=== PATIENT | male | born 1975 | race Caucasian/White ===

== ENCOUNTER 2020-12-04 13:59 | Outpatient (CLI) | payer BC, SELFPAY ==
--- NOTE | ~2020-12-04 | XR_ITS ---
XR chest 2V DATE: 12/04/2020 14:24 INDICATION: Cough, chest pain, dyspnea. Covid. TECHNIQUE: PA and lateral chest COMPARISON: 01/29/2012 PA and lateral chest FINDINGS: Normal heart size. No hilar or mediastinal enlargement. No pulmonary infiltrate or consolid ation, pleural effusion or pulmonary vascular congestion or pneumothorax. IMPRESSION: Negative chest Reviewed, dictated and finalized at location B. IMPRESSION: Negative chest
[2020-12-04 14:38] LABS: Basophils Absolute Auto 0.03 K/mm3 (0.00-0.10); Basophils Percent Auto 0.5 % (0.0-1.0); Eosinophils Absolute Auto 0.12 K/mm3 (0.02-0.50); Eosinophils Percent Auto 2.2 % (1.0-6.0); Hematocrit 46.4 % (40.0-54.0); Hemoglobin 15.2 g/dL (14.0-18.0); Immature Granulocyte Absolute 0.05 K/mm3 (0.00-0.00); Immature Granulocyte Percent A 0.9 % (0.0-0.0); Lymphocytes Absolute Auto 1.96 K/mm3 (1.10-4.50); Lymphocytes Percent Auto 35.2 % (18.0-42.0); Mean Corpuscular HGB Conc 32.8 g/dL (32.0-36.0); Mean Corpuscular Hemoglobin 28.8 pg (27.0-31.0); Mean Corpuscular Volume 87.9 fL (78.0-102.0); Mean Platelet Volume 8.2 fl (8.7-11.0); Monocytes Percent Auto 14.4 % (2.0-11.0); Neutrophils Absolute Auto 2.6 K/mm3 (1.7-7.2); Neutrophils Percent Auto 46.8 % (50.0-70.0); Platelet Count Result 350 K/mm3 (150-420); Red Blood Count 5.28 M/mm3 (4.70-6.10); Red Cell Distribution Width 12.8 % (11.6-14.4); White Blood Count 5.6 K/mm3 (4.8-10.8)
[2020-12-04 14:57] LABS: Alanine Aminotransferase 35 U/L (16-63); Albumin Level 3.9 g/dL (3.4-5.0); Alkaline Phosphatase 77 U/L (46-116); Anion Gap 9 mmol/L (8-16); Aspartate Amino Transferase 19 U/L (15-37); Bilirubin,Total 0.4 mg/dL (0.00-1.00); Blood Urea Nitrogen 12 mg/dL (7-18); CRP 0.6 mg/dL (0.0-0.9); Calcium 8.8 mg/dL (8.5-10.1); Carbon Dioxide 28 mmol/L (21-32); Chloride 103 mmol/L (98-108); Creatine Kinase 265 U/L (39-308); Estimated Glomerular Filt Rate > 60; Glucose 101 mg/dL (70-99); Osmolality Calculated 289 mOsm/kg (285-295); Potassium 4.3 mmol/L (3.5-5.1); Sodium 140 mmol/L (136-145); Total Protein 7.5 g/dL (6.4-8.2)
[2020-12-04 14:59] LABS: Troponin I < 4.0 ng/L (0.00-60.4)
[2020-12-04 15:09] LABS: SARS-CoV-2 RNA PCR Positive (Negative)
[2020-12-05 10:58] LABS: Reference Lab Test Result NEGATIVE
== END 2020-12-04 14:00 | disposition home or self-care (01) ==
LOC: CHSLAB 14:02
PROVIDERS: PCP Internal Medicine; Visit Provider Internal Medicine
DX: U07.1 COVID-19 (principal); R05 Cough; R07.9 Chest pain, unspecified; R06.00 Dyspnea, unspecified
CPT/HCPCS: 36415; 71046; 80053; 82550; 82553; 84484; 85025; 85380; 86140; 86769; C9803; U0003; U0005

== ENCOUNTER 2023-07-16 09:52 | Outpatient (CLI) | payer BC, SELFPAY ==
--- NOTE | ~2023-07-16 | MR_ITS ---
EXAMINATION: MR brain/brain stem wo con DATE: 07/16/2023 10:33 INDICATION: Persistent headache. TECHNIQUE: Magnetic resonance imaging (MRI) of the brain and brainstem was performed without intraven ous contrast. COMPARISON: None. FINDINGS: There is no intracranial hemorrhage, acute infarction, or abnormal intracranial mass lesion . The ventricles are normal in size. There is mucosal thickening in the paranasal sinuses. The orbits are normal. The mastoid air cells are normal. IMPRESSION: 1. Normal brain. Reviewed, dictated and finalized at location A. IMPRESSION: 1. Normal brain.
== END 2023-07-16 09:53 | disposition home or self-care (01) ==
LOC: CHSIMG 09:53
PROVIDERS: PCP Internal Medicine; Visit Provider Internal Medicine
DX: R51.9 Headache, unspecified (principal)
CPT/HCPCS: 70551

== ENCOUNTER 2025-01-17 16:27 | Outpatient (CLI) | payer BC, SELFPAY ==
--- OUTSIDE RECORDS SUMMARY | 2023-02-17 04:05 | XMS_ITS | Continuity of Care Document ---
Author Organization [facility] [place] [address] [facility] [address] [place] [address] [place] [id number] Phone Care Team Providers Care Staff Services Manager Name Role Phone Damián Ferro MD, FACS Unavailable Unavailab le Allergies, Adverse Reactions, Alerts Substance Reaction Status Criticality No Known Allergies Active No Inform ation Medications Medication Instructions Dosage Effective Dates (start - stop) Status Comments polymyxin B sulfate 10,000 unit-trimethoprim 1 mg/mL eye drops instill 1 drop by ophthalmic route QID for three days into the left eye - Active prednisolone acetate 1 % eye drops,suspension instill 1 gtt in the left eye once a day - Active telmisartan 40 mg tablet take 1 tablet by oral route every day 40 MG - Active polymyxin B sulfate 10,000 unit-trimethoprim 1 mg/mL eye drops instill 1 drop by ophthalmic route QID x 3 days into the left eye - No Longer Active prednisolone acetate 1 % eye drops,suspension instill 1 gtt in the left eye once a day - No Longer Active Procedures Procedure Date Corneal Topography No Charge Optomap Fundus Photos 023 Eye Exam & Treatment Corneal Topography Eye Exam Established Pt Corneal Topography No Charge Optomap Fundus Photos 019 Office/outpatient Visit, Est Corneal Topography Office/outpatient Visit, Est Corneal Topography No Charge Optomap Fundus Photos 018 Eye Exam & Treatment No Charge Optomap Fundus Photos 017 Eye Exam & Treatment Office/outpatient Visit, Est Eye Exam Established Pt No Charge Orbscan Office/outpatient Visit, Est Office/outpatient Visit, Est No Charge Orbscan Office/outpatient Visit, Est Corneal Topography Office/outpatient Visit, Est Corneal Topography Office/outpatient Visit, Est No Charge Optomap Fundus Photos 015 Corneal Topography Office/outpatient Visit, Est Post-op Follow-up Visit Post-op Follow-up Visit Post-op Follow-up Visit Corneal Transplant Eye Exam, New Patient Corneal Topography No Charge Optomap Fundus Photos 015 No Charge Refraction Advance Directives Directive Yes / No Effective Date File Name No Information Encounters Encounter Description Practice Location Reason(s) For Visit Diagnoses Date Provider Providers Copied on Encounter [facility], [facility] [address], [place], [place], [id number], [phone] [place] No Information Feb- 3 Pillo Steel. [id number], [address], [place], [place], [address], [place]. tel:[phone] [facility], [address], [place], [place], [address], tel:[phone] SEC [place] Complete Exam (chief complaint) Corneal transplant statusKerato conus, stable, right eye 3 Pillo Steel. [id number], [address], [place], [place], [address], [place]. tel:[phone] Referring Provider: Caro Lord OD L, [address], [place], [address]. tel:[phone] [facility], [address], [place], [place], [address], [place] tel:[phone] SEC Ze MÉNDEZ Professional No Information 2 [place] Damián. [facility] [employer], [address], [place], [place], [address], [place]. tel:[phone] [facility], [address], [place], [place], [address], tel:[phone] SEC Diegoanil Potter Cornea Check (chief complaint) Keratoconus, stable, right eyeCorneal transplant status 0 Pillo Damián. [facility] [employer], [address], [place], [place], [address], [place]. tel:[phone] Referring Provider: Caro Lord OD L, [address], [place], [address]. tel:[phone] Office/outpa tient Visit, Est [facility], [address], [place], [place], [address], [place] tel:[phone] SEC Diego Noemi Dianeh Complete Exam (chief complaint) Keratoconus, stable, right eyeCorneal transplant status 9 [place] Damián. [facility] [employer], [address], [place], [place], [address], [place]. tel:[phone] Referring Provider: Caro Lord OD L, [address], [place], [address]. tel:[phone] [facility], [address], [place], [place], [address], tel:[phone] SEC [place] No Information 201 9 Pillo Steel. [facility] [employer], [address], [place], [place], [address], . tel:[phone] Office/outpa tient Visit, Est [facility], [address] [place] [address] [address], [place], [place], [address], tel:[phone] SEC [place] Graft check (chief complaint) Corneal transplant statusKerato conus, stable, right eye Apr-2 9 Pillo Steel. [address] [place] [address] [employer], [address], [place], [place], [address], [place]. tel:[phone] Referring Provider: Caro Lord OD L, [address], [place], [address]. tel:[phone] [facility], [address] [place] [address] [address], [place], [place], [address], tel:[phone] SEC [place] Complete Exam (chief complaint) Keratoconus, stable, right eyeCorneal transplant status Nov- 8 Pillo Steel. [facility] [employer], [address], [place], [place], [address], [place]. tel:[phone] Referring Provider: Caro Lord OD L, [address], [place], [address]. tel:[phone] [facility], [address] [place] [address] [address], [place], [place], [address], tel:[phone] SEC [place] Complete Exam (chief complaint) Corneal transplant statusKerato conus, stable, right eye Josias-0 7 Pillo Steel. [facility] [employer], [address], [place], [place], [address], . tel:[phone] Referring Provider: Caro Lord OD L, [address], [place], [address]. tel:[phone] [facility], [id number] [place] [address] [address], [place], [place], [address], [place] tel:[phone] SEC [place] N [place] Graft Check (chief complaint) No Information 6 Pillo Damián. [address] [place] [address] [facility], [address], [place], [place], [address], . tel:[phone] Referring Provider: Caro Lord OD L, [address], [place], [address]. tel:[phone] [facility], [address] [place] [address] [address], [place], [place], [address], tel:[phone] SEC [place] N [place] redness, tearing, pain (chief complaint) No Information 6 Pillo Damián. [address] [place] [address] [employer], [address], [place], [place], [address], [place]. tel:[phone] Referring Provider: Caro Lord OD L, [address], [place], [address]. tel:[phone] Office/outpa tient Visit, [facility], [address] [place] [address] [address], [place], [place], [address], [place] tel:[phone] SEC [place] N [place] 4-6 week graft check (chief complaint) No Information 6 Pillo Damián. [address] [place] [address] [employer], [address], [place], [place], [address], [place]. tel:[phone] Referring Provider: Caro Lord OD L, [address], [place], [address]. tel:[phone] Office/outpa tient Visit, [facility], [address] [place] [address] [address], [place], [place], [address], [place] tel:[phone] SEC [place] N [place] WIE (chief complaint) No Information 6 Kim Ni. [address] [facility], [address], [place], [place], [address], [place]. tel:[phone] Referring Provider: Caro Lord OD L, [address], [place], [address]. tel:[phone] Office/outpa tient Visit, [facility], [address] [place] [address] [address], [place], [place], [address], [place] tel:[phone] SEC [place] N [place] 2 month Graft Check with Possible Suture Removal (chief complaint) No Information 6 Pillo Damián. [address] [place] [address], [address], [place], [place], [address], [place]. tel:[phone] Referring Provider: Caro Lord OD L, [address], [place], [place], [facility] [place]. [phone] Office/outpa tient Visit, [facility], [address] [place] [address] [address], [place], [place], [address], [place] tel:[phone] SEC [place] N [place] Graft Check (chief complaint) No Information 6 Pillo Damián. [address] [place] [address], [address], [place], [place], [address], [place]. tel:[phone] Referring Provider: Caro Lord OD L, [address], [place], [address]. [phone] Office/outpa tient Visit, [facility], [address] [place] [address] [address], [place], [place], [address], [place] [phone] SEC [place] 2 month Graft Check (chief complaint) No Information 5 [place] Damián. [address] [place] [address], [address], [place], [place], [address], [place]. tel:[phone] Referring Provider: Aj Paz MD, [address] [facility], [place], [address]. tel:[phone] Office/outpa tient Visit, Est [facility], [address], [place], [place], [address], [place] tel:[phone] SEC [place] Noemi Davidsonbergh 2-3 Month graft check (chief complaint) No Information 5 [address]illo Steel. [address], [address], [place], [place], [address], [place]. tel:[phone] Referring Provider: Damián Mackenzie, [facility] [address], [place], [address]. tel:[phone] [facility], [address], [place], [place], [address], [place] tel:[phone] SEC Diego N oRxih F/u exam, postop (chief complaint) No Information 5 Pillo Steel. [facility] [employer], [address], [place], [place], [address], [place]. tel:[phone] Referring Provider: Damián Mackenzie, [facility] [address], [place], [address]. tel:[phone] [facility], [address], [place], [place], [address], [place] tel:[phone] SEC [place] 1 WK PO PK OS (chief complaint) No Information 5 Pillo Steel. [facility] [employer], [address], [place], [place], [address], [place]. tel:[phone] Referring Provider: Caro Lord OD L, [address] [facility] [address] [place] [address], [address]. tel:[phone] [facility], [facility], [address], [place], [place], [address], [place] tel:[phone] SEC [place] N Stuartbergh 1 day po PK OS (chief complaint) No Information 5 Pillo Steel. [facility] [employer], [address], [place], [place], [address], . tel:[phone] Referring Provider: Caro Lord OD L, [address], [place], [place], [facility] [place]. tel:[phone] [employer], [facility] [address], [place], [place], [address], [phone] [facility] No Information 5 Pillo Steel. [facility] [employer], [address], [place], [place], [address], . tel:[phone] Referring Provider: Caro Lord OD L, [address], [place], [address]. tel:[phone] [facility], [facility] [address], [place], [place], [address], [phone] SEC [place] Professional Blurry vision (chief complaint) No Information 5 Pillo Steel. [facility] [employer], [address], [place], [place], [address], [place]. tel:[phone] Referring Provider: Damián Mackenzie, [facility] [address], [place], [address]. tel:[phone] [employer], [facility] [address], [place], [place], [address], [phone] SEC Diego N Stuartbergdenzel No Information 5 Kim Ni. [address] [facility], [address], [place], [place], [address], . tel:[phone] Family History Family Member Type Diagnosis Age At Onset Mother Problem (finding) retinal detachment Problem (finding) Family history of glauc talya Payers Payer name Insurance type Covered republican ID Authoriza tixena(s) [place] Out Of [place] [id number] Social History Type Description Quantity Date Captured Comments Alcohol Use Details Unknown Caffeine Use Details Unknown Tobacco Use Status No Information Smoking Status No Information Sex Male Gender Identity Male Chief Complaint And Reason For Visit No Information Reason For Referral Reason For Referral No Information Plan Of Treatment Date Type Action Status Goal Tobacco cessation counseling completed Referral Ordered: Caro Lord (related to Corneal transplant status) ordered Referral Referred To: Caro Lord [address] ([address]) [place], [place] [id number] Ordered: Referrals: Caro Lord. Follow-up and Treat ordered Patient Education Learning About Your Eye s completed Patient Education Learning About Your Eye s completed Patient Education Corneal Transplant (Ful l Thickness): ~ completed History Of Present Illness Encounter Date Complaint History Of Prese nt Illness Complete Exam The 46 year old patient presents for evaluation of Complete Exam in the right eye and left eye. Pt. states wears contacts ou with OS having a piggyback lens. Pt. states his vision is still stable ou. Pt. states during summer season at times eyes gets dry and some discomfort in OD. Pt. is using Pred OS qod. Cornea Check The 43 year old male presents for evaluation of Cornea Check in the right eye and left eye. Hx of PK OS (2014), Filamentary Keratitis OS, large diameter contact lens wear and Keratoconus OD. Patient using Pred QD OS. Patient wearing a soft monthly CL in the right eye and wearing a hard CL with a soft daily lens over the top in the left eye. Pt states vision is stable OU with current CL Rx. Pt denies pain and discomfort OU. Complete Exam The 43 year old male presents for evaluation of Complete Exam in the right eye and left eye. Hx of PK OS (2014), Filamentary Keratitis OS, large diameter contact lens wear and Keratoconus OD. Patient using Pred QD OS, pt needs refills, refill sent to this pharmacy. Patient wearing a soft monthly CL in the right eye and wearing a hard CL with a soft daily lens over the top in the left eye. Pt reports stable vision in current CL Rx. Graft check The 42 year old male presents for evaluation of 6 month Graft check in the right eye and left eye. Hx of PK OS (2014), Filamentary Keratitis OS, large diameter contact lens wear and Keratoconus OD. Patient using Pred qd OS, pt needs refills. Patient wearing a soft monthly CL in the right eye and wearing a hard CL with a soft daily lens over the top in the left eye. Pt denies pain or irritation. Pt reports occasional dryness associated with being outside in the warm weather. Pt denies flashes and floaters OU. Complete Exam The 42 year old male presents for evaluation of Complete Exam in the right eye and left eye. Hx of PK OS (2014), Filamentary Keratitis OS, and Keratoconus OD. Patient denies any changes with eyes. Patient using Pred qd OS and NEEDS REFILLS. Patient wearing a soft monthly disp CL in the right eye and wearing a hard CL with a soft daily lens over the top in the left eye. Complete Exam The 40 year old male presents for Complete Exam in the right eye and left eye. Hx of PK OS 2014, Filamentatry Keratitis OS, Keratoconus and Cls wearer B&L dailies. Pt has switched from monthy cls to dailies and has not had a flare in 3wks. Pt using PF OS qd. pt states no VA, pain, or discomfort complaints. Graft Check The 40 year old male presents for Graft Check in the left eye. Hx Pk OS. Pt uses Pred QD OS, Poly OS prn. Pt states he still gets lots of pain an d redness OS. redness, tearing, pain The 40 ye ar old male presents for redness, tearing, severe stabbing pain, pressure and light sensitivity OS x 3 days, getting better. S/P PK OS 11-16-14. Pt states this has been going on all summer on and off. Pt states v/a OS is affected, blurry but then clears up after a few days. Pt wears soft [employer] N&D -0.25 and hard CTL OS. Pt is using Pred QD OS, sometimes BID. 4-6 week graft check The 39 year old male presents for evaluation of 4-6 week graft check in the OS. Pt reports decreased light sensitivity, pt is currently taking Polytrim and Prednisolone QD OS. Pt reports no discomfort, pain or irritation. WIE The 39 year old male presents for WIE. Patient had PK OS 11/16/2014. Patient had sutures removed on 08/13/2015. Patient states he was putting his little girl who is 1 to bed last night and he is unsure if she hit his eye, or what happened. Patient says but he is having pain in the eye, and can see almost like a bubble or wrinkle in the cornea. Patient says he had no pain up until last night and now he is having minor irritation/scratching feeling. Patient says he had none of this even after having the stitches removed last week. Patient says he wanted to have it looked at to make sure it is ok. Patient using Prednisolone BID and Polymyxin BID OS. 2 month Graft Check with Possible Suture Removal The 39 year old male presents for 2 month Graft Check with Possible Suture Removal OS. S/P PK OS 11-16-14. Pt using Poly QD OS and Pred QD OS. Pt states OS is doing ok. He is wanting to get some stitches out today. Pt states no pain, irritation, discomfort OS Graft Check The 39 year old male presents for Corneal Graft check. S/P PK 11-16-14. Pt using Poly QD OS and Pred QD OS. Pt states VA is still about the same. Very blurry. Pain is seldom and has some itching. 2 month Graft Check The 39 year old male presents for 2 month graft check. Patient says his vision is about the same. Patient states he still has some blurriness that comes and goes. Patient says he is using Pred Qdaily and Poly Qdaily, patient will use AFT's prn (seldomly). Patient says it feels much better and not having as much trouble with photophobia.Patient needs refill on both Poly and Pred sent to his pharmacy if he needs to stay on one or both. 2-3 Month graft check The 39 yea r old male presents for evaluation of 2-3 Month graft check. Pt is taking PRED TID OS and POLY TID OS and is on a monthly taper (Nov BID and Apr QD). Pt. states that the POLy johns when he puts it in his eye. Pt states that he has occ. tearing and photophobic 1x q 3-4 days. Pt. states the his vision seems to be slowly improving but does fluctuate. Pt. states the his vision seems to be slowly improving but does fluctuate. Pt has enough refills on the PRED but does need some refills on the POLY. F/u exam, postop The 39 year old male presents for a 4 week post op to PK OS (11/16/14). Pt using Pred and Poly QID OS. Pt will need refill on both gtts if to continue. Pt having problems with distance vision and glare at night. 1 WK PO PK OS The 38 year old male presents for 1 WK PO PK OS. Patient reports OS feels ok, states it will occasionally water and is very light sensitive. Patient is using Prednisolone and Polytrim QID OS. 1 day po PK OS The 38 year old male presents for 1 day po PK OS. Patient says he feels like there is sand in eye OS. Patient has Pred, Vigamox, and Bromfenac gtts. Patient knows to take Pred and Vigamox QID OS. He does not know what to do with the Bromfenac. Blurry vision The 38 year old male presents for Keratoconus Eval from Dr. Lord. Pt states he wears Soft CTL OU. Pt thinks OD CTL is by B&L and is not sure of OS CTL. Pt complains that OS does not see well with any soft CTL. Pt was considering a cornea transplant about 1 month ago. Pt only uses saline solution PRN. Functional Status Date Functional Assessmen t No Information Instructions Date Instruction Additional Infor sander Impression/Plan Impression/Plan Impression/Plan Impression/Plan Impression/Plan Medication use discussed Related to Corneal transplant status Refills sent to pharmacy Related to Corneal transplant status Impression/Plan - Gr aft stable. Continue same medications. Pt is instructed to contact the office if medications become too expensive. Continue with current CTL's. Return to our office in 1 yr or sooner if vision worsens. Follow up - 1 yr complete exam Corneal transplant s tatus - Medication use discussed Related to Corneal transplant status Corneal transplant s tatus - Medication use discussed Related to Corneal transplant status Corneal transplant s tatus - Medication use discussed Related to Corneal transplant status Impression/Plan - Di scussed exam findings with pt. Will continue with current CTL and with suture placement. If he gets to a point where he needs to have CTL refit OS we rec he return here for suture removal prior to being refit. Increase Pred with irritation and vaccinations. ERX to [facility] with 12 refills. Return to the office in 6 months or sooner if vision worsens. Follow up - 6 months complete ex am Impression/Plan - Di scussed dx with pt. Graft looks clear today, suture is intact. 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 We discussed using Pred and Polytrim TID for 1 week. Then return to Pred use qday. If this does not improve he can return to the office for irrigation. Any of the drJaspal's in our office can do this. Keep appointment as scheduled in March. Will send a copy of today's exam to Dr. Lord. Pentacam needed on return. Corneal transplant s tatus - Medication use discussed Related to Corneal transplant status Impression/Plan - Di scussed dx with pt. Will continue with suture in place. Pt can schedule CTL fitting with Dr. Lord. If they have difficulty fitting CTL he can return here for suture removal. Discussed gtt use with pt. Continue same medication regimen. Ok to DC Poly but save. ERX Pred to [place] [facility]. Will send today's visit to Dr. Lord Follow up - 6 months graft check Impression/Plan - Fi laments removed with forceps.Use Polytrim and Pred tonight and continue qd OS.Fresh Kote tears OS.Return as scheduled. Impression/Plan - 1s t row of sutures removed at slit lamp. 1 gtt Alcaine and Theo given prior to suture removal and 1 gtt poly given after. Increase Pred & Poly QID for 2 days, TID for 2 days, BID for 2 days then back to qday. Explained we may or may not remove last row of sutures. Pt needs pentacam on return visit. Explained vision will fluctuate now that 1st row of sutures has been removed. Ok to use AT's as needed Corneal transplant s tatus - Medication use discussed Related to Corneal transplant status Follow up - return i n 4-6 weeks with pentacam Corneal transplant s tatus - Medication use discussed Related to Corneal transplant status Follow up - 2-3 marcelina hs graft check with Pentacam Impression/Plan - OS : Discussed diagnosis in detail with patient. No change to current treatment. Medication instillation reviewed and understood. Continue using current medication(s). Take medication(s) as written. Call if VA worsens. Pentacam needed on return visit. May remove 1st row of sutures on return visit. Follow up - 2 months graft check Impression/Plan - Di scussed dx with pt. Continue same meds. Pentacam needed every visit to monitor suture placement and when these are ready to be removed. Explained these are usually in place for 8-10 months 2 months graft check with Pentac am Related to Corneal transplant status Impression/Plan - Di scussed dx with pt. Rec using AT's throughout the day. Decrease Polytrim to qday. Prednisolone- BID March 04 then April 03 decrease to Qday and stay on qday. Will monitor sutures every visit. Pentacam needed every visit Related to Corneal transplant status Follow up - 2 months graft check with Pentacam Related to Corneal transplant status - 2-3 months graft check Related to Follow-up examination after surgery - Discussed dx with pt. Drop use reviewed Continue Sept QID, Oct TID, Nov BID then [facility] Related to Follow-up examination after surgery Follow-up examinatio n after surgery - Post op instructions reviewed Related to Follow-up examination after surgery - 4 weeks post op graft check Re lated to Follow-up examination after surgery - 1 week post op PK OS Discussed post op course with pt, continue current medications. Discussed irritation associated with rough epithelium however his own epithelium is now over the graft. Small pocket of fluid remains from antibiotic injection at the time of surgery. This will gradually resolve. Return to clinic sooner if vision worsens. Ok to use ATs as needed. Samples given Continue with eye protection, Related to Follow-up examination after surgery - 1 week post op as scheduled. R elated to Follow-up examination after surgery - 1 day post op PK O S Post op instructions discussed and reviewed with pt. Pt instructed to return to clinic sooner if vision worsens, otherwise return to clinic as scheduled in 1 week. Gtt use discussed. NSAID discussed with pt, use this with discomfort as needed 2-3 times a day. Explained this drop is optional. Rx for Polytrim sent to [facility] use QID in place of Vigamox. Explained vision can blur and he may feel irritation over the next week. Avoid straining. Rec eye protection Related to Follow-up examination after surgery Follow-up examinatio n after surgery - Post op instructions reviewed Related to Follow-up examination after surgery - Discussed dx with pt and treatment options. Discussed collagen crosslinking, and aware at this time it is under FDA trial and is not covered by insurance until approved by the FDA. Discussed PK with pt and understands the length of heal time and joint terminal attack controller medication use to assist with the overall health of the graft. Explained suture placement, and additional risks of glaucoma and cataract development, and frequent office visits to monitor. All questions answered, and risks/alts and benefits explained and understood. Discussed Intacs as a treatment option but not recommended. 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
--- OUTSIDE RECORDS SUMMARY | 2025-01-17 16:56 | XMS_ITS | Clinical Summary ---
Author Organization [facility] Address [address] [place] [id number] Care Team Providers Care Family Law Paralegal Name Role Phone Unavailable Primary Care Provider Unavailabl e Social History Tobacco Use Types Packs/Day Years Used Date Smoking Tobacco: Never Assessed Sex and Gender Information Value Date Recorded Sex Assigned at Not on file Legal Sex Male 4:55 PM CDT Gender Identity Not on file Sexual Orientation Not on file Plan of Treatment Health Maintenance Due Date Last Done Comments Colorectal Cancer Screening Colonoscopy (10 Years) 1975 Annual Physical 12/03/1978 Hepatitis C 12/03/1993 DTaP, Tdap and Td Vaccines ( 1 - Tdap) 12/03/1994 Hepatitis B Vaccines (1 of 3 - 19+ 3-dose series) 12/03/1994 COVID-19 Vaccine (2023-2 5 season) 2025 Meningococcal B Vaccine Aged Out No l onger eligible based on patient's age to complete this topic Meningococcal Vaccine Aged Out No teresita margaret eligible based on patient's age to complete this topic Pneumococcal Vaccine: Pediat rics (0 to 5 Years) and At-Risk Patients (6 to 49 Years) Aged Out No longer eligible b ased on patient's age to complete this topic RSV Immunizations Under 20 Months Aged Out No longer eligible based on patient's age to complete this topic
--- OUTSIDE RECORDS SUMMARY | 2025-01-17 16:56 | XMS_ITS | Clinical Summary ---
Author Organization [facility] Address [address] [place] [id number] Care Team Providers Care Staking Technician Name Role Phone Aj Paz MD Primary Care Provider [phone] Allergies No known active allergies Medications telmisartan (MICARDIS) 40 mg tablet 10/12/2024 Active Active Problems No known active problems Encounters Date Type Department Care Team Description 10/25/2024 1:20 PM CDT Office Visit [facility] [address] [place] [address] Medical Office Building [address] [place] [address] Last, Sanjana Rhoades MD Mucocele of salivary gland (Primary Dx); Rash from Last 3 Months Social History Tobacco Use Types Packs/Day Years Used Date Smoking Tobacco: Never Passive Smoke Exposure: Never Smokeless Tobacco: Never Tobacco Cessation:Counseling Given: Not Answered Sex and Gender Information Value Date Recorded Sex Assigned at Not on file 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 Gender Identity Not on file Sexual Orientation Not on file Obstetrics History Last Filed Vital Signs Vital Sign Reading Time Taken Comments Blood Pressure - - Pulse - - Temperature - - Respiratory Rate - - Oxygen Saturation - - Inhaled Oxygen Concentration - - Weight 111.1 kg (245 lb) 10/25/2024 1:07 PM CDT Height 185.4 cm (6' 1) 10/25/2024 1:07 PM CDT Body Mass Index 32.32 10/25/2024 1:07 PM CDT Plan of Treatment Health Maintenance Due Date Last Done Comments Colon Cancer Screening-Colonoscopy 1975 Depression Screening 1975 Hepatitis C Screening 1975 DTaP/Tdap/Td Vaccine (6 - Tdap) 11/19/1989 11/18/1989, 10/24/1980, 07/16/1977, Additional history exists Hepatitis B Screening 12/03/1993 Regular Well Visit/Exam 18-64 12/03/1993 Covid-19 Vaccine ( season) 2025 01/25/2021, 01/04/2021 Influenza Vaccine (#1) 2025 Pneumococcal vaccine <65 Aged Out No longer eligible based on patient's age to complete this topic Insurance [employer] [facility] Care Teams Staking Technician Relationship Specialty Start Date End Date Aj Paz MD [address] [place] [address] PCP - General Internal Medicine 10/07/24
--- OUTSIDE RECORDS SUMMARY | 2025-01-17 16:56 | XMS_ITS ---
Author Name Rosa Otero Address Unknown Organization [facility] Care Team Providers Care General Expeditor Name Role Phone Unavailable Primary Care Physician Unavailab le History Of Present Illness This is a 49 year old male who is a new patient who presents to clinic today for acne. The acne is located on the: Face back and shoulder . He complains of: inflammatory papules (red, inflamed bumps), cysts, and discoloration. The acne has been present for 6 years. Pertinent history includes: oily skin. He has tried the following topical treatment(s): over the counter medications. He has not tried any systemic treatment in the past. He has not tried any other acne treatment in the past. He is not currently on any topical treatment. He is not currently on any systemic treatment. Medications Medication Generic Name RxNorm Strength Strength Unit Route Dose Dose Form Frequency Date Started Date Ended Status Indication Sig ivermectin ivermect in 9287661 1 % Topica l cream 01/17/20 25 active Appl y thin laye r of crea m for affe cted area s of the face once to twic e alejandra y doxycycline hyclate doxycycl ine hyclate 1182911 100 mg Oral capsu le 01/17/20 25 active Take two caps ules alejandra y with food 5-7 days at a time with flar e. then PRN as need ed for flar e. telmisartan telmisar tellez 461059 40 mg Oral table t active Problems Problem Code Type Status Date of Diagnosis Da te of Resolution Inflammatory dermatosis (disorder) 979872321(SN OMED) Diagnosis active 01/16/2025 Rosacea (disorder) 515603455(SN OMED) Diagnosis active 01/16/2025 Increased blood pressure (finding) 82925295(SNO MED) Problem active Results No data Encounters Service provided at [facility], [address] [place] [phone]. Office phone number is [phone]. Office fax number is [phone]. Encounter Diagnosis Location Date / Time Type Dermatitis Unspecified (L30. 9)Acne Rosacea (L71.8) Geronimo Dyson 01/16/2025 20:30:00 [facility] [address] Reason For Referral No data Procedures Procedure Date Documentation of past medical history (p rocedure) Plastic surgery self-referral (procedure ) Documentation of past medical history (p rocedure) Review Of Systems Provider reviewed on Jan 16, 2025.A focused review of systems was performed including Hematologic /Lymphatic and Integumentary.No Problems With Bleeding, No Problems With Healing, And No Problems With Scarring (hypertrophic Or Keloid). Assessment 1.Dermatitis Unspecified, Status: Inadequately ControlledCounselingOrder Tests2.Acne Rosacea, Status: Inadequately ControlledCounselingPrescription: doxycycline hyclate 100 mg capsule PO; ivermectin 1 % topical cream TPPrescription Medication Management: Initiate Treatment - Medications as rx???ed.Medication Counseling Plan of Care Future visit for 02/13/2025 - Follow up in 1 month for: Acne. Other Instructions: Pending return ofANA. Other Instructions: Pending return of JONO. Code Detail Instructions 15080-9 JONO Titr Ser January 16 [id number] ivermectin 1 % topical cream Marlo ly thin layer of cream for affected areas of the face once to twice daily 1015400 doxycycline hyclate 100 mg capsu le Take two capsules daily with food 5-7 days at a time with flare. then PRN as needed for flare. Instructions * I counseled the patient regarding the following:Skin care: Patient instructed to use emollients.Expectations: The patient understands that there is not a definitive diagnosis at this time. Further testing or empiric therapy may be necessary to diagnose and improve the condition.Contact office if: The patient develops a fever, or rash dramatically worsens despite treatment.I recommended the following: AntihistaminesCleansersMoisturizersLab Tests and Methods : lupus panel * I counseled the patient regarding the following:Skin care: Patient instructed to wear broad spectrum sunscreen. Moisturizers with green tints can hide redness.Expectations: Rosacea is chronic. Flushing and pimples can be triggered by: alcohol, stress, exercise, hot temperatures or spicy foods, wind and sun exposure. Telangiectasias can be improved with laser.Contact office if: Rosacea worsens or fails to improve despite months of treatment; patient develops nodules or cysts.I recommended the following: CleansersMoisturizersBroad Spectrum Sunscreen SPF 30+Topical Retinoids * Doxycycline Counseling: Patient counseled regarding possible photosensitivity and increased risk for sunburn. Patient instructed to avoid sunlight, if possible. When exposed to sunlight, patients should wear protective clothing, sunglasses, and sunscreen. The patient was instructed to call the office immediately if the following severe adverse effects occur: hearing changes, easy bruising/bleeding, severe headache, or vision changes. The patient verbalized understanding of the proper use and possible adverse effects of doxycycline. All of the patient's questions and concerns were addressed.Marivel lantra is a topical medicine which decreases the number of mites and inflammation in the skin. You experience burning, stinging, eye irritation or allergic reactions. Please call our office if you develop any problems from using this medication. Social History Code Activity Start Date End Date [id number] (SNOMED) Never smoker Sex male Sexual orientation Unspecified Gender identity Unspecified Vital Signs No data
[2025-01-23 08:08] LABS: ANA by IFA Rfx Titer/Pattern Negative (.)
== END 2025-01-17 16:28 | disposition home or self-care (01) ==
LOC: CHSLAB 16:31
PROVIDERS: PCP Internal Medicine
DX: L30.9 Dermatitis, unspecified (principal); L93.2 Other local lupus erythematosus
CPT/HCPCS: 36415; 86038